=== PATIENT | male | born 1995 | race Caucasian/White ===

== ENCOUNTER 2022-10-13 20:20 | Emergency (ER) | payer BC, OTHER ==
[2022-10-13] MEDS ORDERED: Tetracaine HCl/PF 0.5% 4 ML Bottle ONE (22:08)
[2022-10-13] MEDS ORDERED: Tetracaine HCl/PF 0.5% 4 ML Bottle EYERT ONE (22:09)
[2022-10-14] MEDS ORDERED: Ondansetron 4 MG Tab.DIS PO ONE (00:04)
[2022-10-14] MEDS ORDERED: Acetaminophen/HYDROcodone 325-5 MG Tab PO ONE (00:04)
[2022-10-14] MEDS ORDERED: Erythromycin Base 0.5% Ophth Oint 1 GM Tube EYERT ONE (00:10)
== END 2022-10-14 00:48 | disposition home or self-care (01) ==
LOC: MW.ED 20:20
DX: T15.01XA Foreign body in cornea, right eye, initial encounter (principal)
CPT/HCPCS: 65222; 99283; A9270; J3490